=== PATIENT | male | born 1965 | race Caucasian/White ===

== ENCOUNTER 2021-02-07 01:57 | Emergency (ER) | payer MEDICAID ==
[~2021-02-07] VITALS: Ht 180.3 cm; Wt 84.0 kg
--- NOTE | 2021-02-07 02:09 | NUR ---
PT BIBRRA 38 C/O PVC AT 39. DENIES PAIN. PT A/OX1; NONVERBAL, OPENS EYES TO NAME. NONVERBAL. TRACH; R/A TOLERATING WELL. GTUBE; PATENT AND INTACT. CONNECTED PT TO POX AND TELE MONITOR. SAFETY MEASURES IN PLACE.
[2021-02-07 02:27] LABS: BASOPHILS # (AUTO) 0.1 K/uL (0.0-0.2); BASOPHILS % (AUTO) 0.6 % (0.0-2.0); EOSINOPHILS % (AUTO) 2.5 % (0.0-6.0); HEMATOCRIT 32 % (39-51); HEMOGLOBIN 10.8 g/dL (13.5-17.5); LYMPHOCYTES # (AUTO) 2.9 K/uL (0.8-4.8); LYMPHOCYTES % (AUTO) 30.6 % (20.0-44.0); MEAN CORPUSCULAR HGB CONC 34 g/dl (31.0-36.0); MEAN CORPUSCULAR VOLUME 96 fL (80-96); MONOCYTES # (AUTO) 0.7 K/uL (0.1-1.30); MONOCYTES % (AUTO) 7.8 % (2.0-12.0); NEUTROPHILS # (AUTO) 5.5 K/uL (1.8-8.9); NEUTROPHILS % (AUTO) 58.5 % (43.0-81.0); PLATELET COUNT (AUTO) 424 K/uL (150-450); RED BLOOD CELL COUNT(AUTO) 3.29 MIL/uL (4.5-6.0); WHITE BLOOD COUNT (AUTO) 9.4 K/uL (4.3-11.0)
--- NOTE | 2021-02-07 02:27 | NUR ---
INITIATED LAC #20G S/L; PATENT AND INTACT
--- NOTE | 2021-02-07 02:27 | NUR ---
CHIP UNLOADER AT BEDSIDE
[2021-02-07 02:32] LABS: CALCIUM, SERUM 9.6 mg/dL (8.5-10.1); CARBON DIOXIDE 31 mmol/L (21-32); CHLORIDE 102 mmol/L (98-107); CREATININE 1.1 mg/dL (0.6-1.3); GLUCOSE 96 mg/dL (74-106); POTASSIUM 5.4 mmol/L (3.5-5.1); SODIUM SERUM 137 mmol/L (136-145); UREA NITROGEN, BLOOD 48 mg/dL (7-18)
--- NOTE | 2021-02-07 03:52 | NUR ---
REPORT GIVEN TO NAVJOT HAIR FOR UPDATE
--- NOTE | 2021-02-07 04:01 | NUR ---
CALLED [facility] REGARDING BLS TRANSPORT TO [facility]. res# [phone] ETA 30 MINUTES- 4 HOURS
--- NOTE | 2021-02-07 04:12 | NUR ---
[facility] ETA [id number]
--- NOTE | 2021-02-07 07:50 | NUR ---
REPORT GIVEN TO NURSE DANYEL
--- NOTE | 2021-02-07 08:07 | NUR ---
Patient discharged to home in stable condition. Written and verbal after care instructions given. Patient verbalizes understanding of instruction.
--- NOTE | 2021-02-07 08:07 | NUR ---
REPORT GIVEN TO AMBULANCE STAFF
[2021-02-07 08:13] VITALS: BP 116/75
== END 2021-02-07 08:13 ==
LOC: ER 02:01
DX: I49.3 Ventricular premature depolarization (principal)
CPT/HCPCS: 36415; 71045-TC; 80048-TC; 84484-TC; 85025-TC